=== PATIENT | male | born 1990 | race Caucasian/White ===

== ENCOUNTER 2016-12-08 11:25 | Emergency (ER) | payer MEDICAID ==
[~2016-12-08] VITALS: Ht 160 cm; Wt 36.3 kg
[~2016-12-08 11:25] MED LIST: ACET500C4 PO; ACHC10OT EACH EAR; AGM875T PO; BISA10SU58 RC; BROMPHED; CEFD250S3 PO; CEFD300C3 PO; CEFP250T3 PO; CLARTIN PO; DIOCTO; Keppra; LEVE500T PO; LORA10TA7 PO; MCN2C15 EXT; POLY119P5 PO; SCP1.5TD TD; VALP250S14; [UNRECOGNIZED DRUG - CODE] PO; [UNRECOGNIZED DRUG - OTHER]
--- NOTE | 2016-12-08 11:33 | ED Neurological Problem ---
General Stated Complaint: SEIZURE Source: patient Exam Limitations: no limitations History of Present Illness Time seen by provider: 11:32 Initial Comments To ER per EMS from group activity ([employer]) with reports of seizure activity. Patient is nonverbal and severely mentally retarded. Still lives at home at spends his days with [employer]. He does have a seizure history taking Keppra and Depakote. Reports are that he did not hit his head or injure himself from falling. Associated Symptoms: seizures Allergies and Home Medications Allergies Coded Allergies: diphenhydramine (Unverified Allergy, Mild, 11/16/08) midazolam (Unverified Allergy, Mild, 11/16/08) codeine (Verified Adverse Reaction, Unknown, agitation, 03/30/15) Uncoded Allergies: [id number] (TUSSI-PRES) (Allergy, Mild, 11/16/08) Home Medications Levetiracetam 500 Mg Tab, 500 MG PO BID, #60 (Reported) Scopolamine 1.5 Mg Patch, 1 EA TD Q72H, (Reported) Valproic Acid 50 Mg/Ml Solution, 100 MG PO BID, #600 (Reported) [Clartin] 10 , 10 MG PO DAILY, (Reported) Constitutional: see HPI Eyes: No Symptoms Reported Ears, Nose, Mouth, Throat: no symptoms reported Respiratory: no symptoms reported Cardiovascular: no symptoms reported Genitourinary: no symptoms reported Musculoskeletal: no symptoms reported Psychiatric/Neurological: See HPI, Tonic Clonic Seizures Endocrine: No Symptoms Reported Past Ceqpojl-Rqavkn-Domopq Hx Immunizations Up To Date Tetanus Booster (TDap): More than 5yrs PED Vaccines UTD: Yes Surgeries HX Surgeries: Yes (CLEFT LIP/PALATE RECONSTRUCTION) Surgeries: Eye Surgery, Testicular Respiratory Hx Respiratory Disorders: Yes Respiratory Disorders: Asthma Cardiovascular Hx Cardiac Disorders: No Neurological Hx Neurological Disorders: Yes (SEVERE MR--NON-VERBAL) Neurological Disorders: Cerebral Palsy, Developmental Disorder, Seizure Disorder Genitourinary Hx Genitourinary Disorders: No Gastrointestinal Hx Gastrointestinal Disorders: No Musculoskeletal Hx Musculoskeletal Disorders: Yes (CEREBRAL PALSY--MINIMALLY AMBULATORY WITH ASSIST) Endocrine Hx Endocrine Disorders: No HEENT HX ENT Disorders: Yes (CLEFT LIP/PALATE--S/P REPAIR) HEENT Disorders: Chronic Ear Infection Cancer Hx Cancer: No Psychosocial Hx Psychiatric Problems: No Integumentary HX Skin/Integumentary Disorder: No Blood Transfusions Hx Blood Disorders: No Physical Exam Vital Signs Vital Sign - Last 12Hours 12/08/16 11:38 Temp 98.4 Pulse 83 Resp 18 B/P (MAP) 111/76 Pulse Ox 97 O2 Delivery Room Air Capillary Refill : General Appearance: WD/WN, no apparent distress HEENT: PERRL/EOMI, normal ENT inspection Neck: non-tender, full range of motion Respiratory: normal breath sounds, no respiratory distress, no accessory muscle use Gastrointestinal: normal bowel sounds, non tender, soft Neurologic/Psychiatric: alert, normal mood/affect, oriented x 3 Crainal Nerves: normal hearing, normal speech, PERRL Motor/Sensory: no motor deficit, no sensory deficit Skin: normal color, warm/dry Progress/Results/Core Measures Results/Orders Lab Results Laboratory Tests Test 12/08/16 11:28 Range/Units White Blood Count 5.3 4.3-11.0 10^3/uL Red Blood Count 4.22 L 4.35-5.85 10^6/uL Hemoglobin 13.6 13.3-17.7 G/DL Hematocrit 40 40-54 % Mean Corpuscular Volume 96 80-99 FL Mean Corpuscular Hemoglobin 32 25-34 PG Mean Corpuscular Hemoglobin Concent 34 32-36 G/DL Red Cell Distribution Width 13.3 10.0-14.5 % Platelet Count 248 130-400 10^3/uL Mean Platelet Volume 10.0 7.4-10.4 FL Neutrophils (%) (Auto) 55 42-75 % Lymphocytes (%) (Auto) 23 12-44 % Monocytes (%) (Auto) 18 H 0-12 % Eosinophils (%) (Auto) 2 0-10 % Basophils (%) (Auto) 1 0-10 % Neutrophils # (Auto) 2.9 1.8-7.8 X 10^3 Lymphocytes # (Auto) 1.3 1.0-4.0 X 10^3 Monocytes # (Auto) 1.0 0.0-1.0 X 10^3 Eosinophils # (Auto) 0.1 0.0-0.3 10^3/uL Basophils # (Auto) 0.1 0.0-0.1 10^3/uL Neutrophils % (Manual) 61 % Lymphocytes % (Manual) 23 % Monocytes % (Manual) 14 % Eosinophils % (Manual) 2 % Blood Morphology Comment NORMAL Sodium Level 141 135-145 MMOL/L Potassium Level 3.9 3.6-5.0 MMOL/L Chloride Level 107 98-107 MMOL/L Carbon Dioxide Level 29 21-32 MMOL/L Anion Gap 5 5-14 MMOL/L Blood Urea Nitrogen 10 7-18 MG/DL Creatinine 0.69 0.60-1.30 MG/DL Estimat Glomerular Filtration Rate > 60 BUN/Creatinine Ratio 14 Glucose Level 79 70-105 MG/DL Calcium Level 9.5 8.5-10.1 MG/DL Total Bilirubin 0.4 0.1-1.0 MG/DL Aspartate Amino Transf (AST/SGOT) 21 5-34 U/L Alanine Aminotransferase (ALT/SGPT) 17 0-55 U/L Alkaline Phosphatase 140 H 40-136 U/L Total Protein 6.8 6.4-8.2 G/DL Albumin 3.9 3.2-4.5 G/DL Valproic Acid (Depakene) Level 110.6 *H 50.0-100.0 UG/ML My Orders Orders - TERRY DYSON APRN Cbc With Automated Diff (12/08/16 11:30) Comprehensive Metabolic Panel (12/08/16 11:30) Saline Lock/Iv-Start (12/08/16 11:30) Manual Differential (12/08/16 11:28) General/Regular (12/08/16 Lunch) Valproic Acid (12/08/16 12:08) Vital Signs/I&O Vital Sign - Last 12Hours 12/08/16 11:38 Temp 98.4 Pulse 83 Resp 18 B/P (MAP) 111/76 Pulse Ox 97 O2 Delivery Room Air Departure Impression Impression: Primary Impression: Seizure disorder Disposition: HOME, SELF-CARE Condition: Stable Departure-Patient Inst. Decision time for Depature: 12:15 Referrals: CARRIE MADRID MD (PCP/Family) Primary Care Physician Patient Instructions: Seizures, Adult (DC) Add. Discharge Instructions: 1. Return to ER for any concerns 2. Follow-up with his physician this week Copy Copies To 1: ANAY GIRON MD, PETER J APRN December 08, 2016 11:33
[2016-12-08 11:38] LABS: BASOPHILS # (AUTO) 0.1 10^3/uL (0.0-0.1); BASOPHILS % (AUTO) 1 % (0-10); EOSINOPHILS # (AUTO) 0.1 10^3/uL (0.0-0.3); EOSINOPHILS % (AUTO) 2 % (0-10); LYMPHOCYTES # (AUTO) 1.3 X 10^3 (1.0-4.0); LYMPHOCYTES % (AUTO) 23 % (12-44); MEAN CORPUSCULAR HEMOGLOBIN 32 PG (25-34); MEAN CORPUSCULAR HGB CONC 34 G/DL (32-36); MEAN CORPUSCULAR VOLUME 96 FL (80-99); MONOCYTES % (AUTO) 18 % (0-12); NEUTROPHILS # (AUTO) 2.9 X 10^3 (1.8-7.8); NEUTROPHILS % (AUTO) 55 % (42-75); PLATELET COUNT 248 10^3/uL (130-400); RED BLOOD COUNT 4.22 10^6/uL (4.35-5.85); RED CELL DISTRIBUTION WIDTH 13.3 % (10.0-14.5); WHITE BLOOD COUNT 5.3 10^3/uL (4.3-11.0)
[2016-12-08 12:01] LABS: ALANINE AMINOTRANSFERASE 17 U/L (0-55); ALBUMIN 3.9 G/DL (3.2-4.5); ANION GAP 5 MMOL/L (5-14); ASPARTATE AMINO TRANSFERASE 21 U/L (5-34); BILIRUBIN,TOTAL 0.4 MG/DL (0.1-1.0); BLOOD UREA NITROGEN 10 MG/DL (7-18); BUN/CREATININE RATIO 14; CALCIUM 9.5 MG/DL (8.5-10.1); CARBON DIOXIDE 29 MMOL/L (21-32); CHLORIDE 107 MMOL/L (98-107); CREATININE SERUM 0.69 MG/DL (0.60-1.30); GFR ESTIMATED > 60; GLUCOSE 79 MG/DL (70-105); POTASSIUM 3.9 MMOL/L (3.6-5.0); SODIUM 141 MMOL/L (135-145); TOTAL PROTEIN 6.8 G/DL (6.4-8.2)
[2016-12-08 12:11] LABS: EOSINOPHILS % (MANUAL) 2 %; LYMPHOCYTES % (MANUAL) 23 %; NEUTROPHILS % (MANUAL) 61 %
[2016-12-08 12:30] VITALS: BP 110/86
== END 2016-12-08 12:30 | disposition home or self-care (01) ==
LOC: EDUNIT# 11:25 → ER 11:26
DX: G40.909 Epilepsy, unspecified, not intractable, without status epilepticus (principal); G80.9 Cerebral palsy, unspecified; F72 Severe intellectual disabilities; Z79.899 Other long term (current) drug therapy
CPT/HCPCS: 36415; 80053; 80164; 85007; 85027; 99283

== ENCOUNTER 2017-04-04 13:35 | Emergency (ER) | payer MEDICARE, MEDICAID ==
[~2017-04-04] VITALS: Ht 134.6 cm; Wt 38.6 kg
--- OUTSIDE RECORDS SUMMARY | 2017-04-04 13:56 | XMS REPORT ---
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
--- OUTSIDE RECORDS SUMMARY | 2017-04-04 13:57 | XMS REPORT ---
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 mixed with equal parts of triamcinlone Twice a day 1 application to affected area 12h Oct, Active Triamcinolone Acetonide 0.1 % Externally to be mixed with equal part of statin Twice a day 1 application to affected area 12h Oct, Active RESULTS No Results PROCEDURES No Known procedures IMMUNIZATIONS No Known Immunizations
--- NOTE | 2017-04-04 13:58 | ED General ---
General Chief Complaint: General Problems/Pain Stated Complaint: SEIZURES/PAINFUL CRYING Source of Information: Patient Exam Limitations: No Limitations History of Present Illness Time Seen by Provider: 13:56 Initial Comments To ER E by his caregiver mother and father with reports of increased seizure activity and not acting like himself. Patient is nonverbal, cerebral palsy. He 's been crying more than usual lately. No vomiting, normal large BM earlier today. Timing/Duration: 2-3 Days Severity: Moderate Allergies and Home Medications Allergies Coded Allergies: diphenhydramine (Unverified Allergy, Mild, 11/16/08) midazolam (Unverified Allergy, Mild, 11/16/08) codeine (Verified Adverse Reaction, Unknown, agitation, 03/30/15) Uncoded Allergies: [id number] (TUSSI-PRES) (Allergy, Mild, 11/16/08) Home Medications Levetiracetam 500 Mg Tab, 500 MG PO BID, #60 (Reported) Scopolamine 1.5 Mg Patch, 1 EA TD Q72H, (Reported) Valproic Acid 50 Mg/Ml Solution, 100 MG PO BID, #600 (Reported) [Clartin] 10 , 10 MG PO DAILY, (Reported) Constitutional: see HPI, No fever EENTM: see HPI Respiratory: no symptoms reported Cardiovascular: no symptoms reported Genitourinary: no symptoms reported Musculoskeletal: no symptoms reported Skin: no symptoms reported Psychiatric/Neurological: No Symptoms Reported Hematologic/Lymphatic: No Symptoms Reported Immunological/Allergic: no symptoms reported Past Lyxqngj-Nepllg-Cclrxj Hx Patient Social History Recent Foreign Travel: No Contact w/Someone Who Travel: No Immunizations Up To Date Tetanus Booster (TDap): More than 5yrs PED Vaccines UTD: Yes Surgeries History of Surgeries: Yes (CLEFT LIP/PALATE RECONSTRUCTION) Surgeries: Eye Surgery, Testicular Respiratory History of Respiratory Disorde: Yes Respiratory Disorders: Asthma Cardiovascular History of Cardiac Disorders: No Neurological History of Neurological Disord: Yes (SEVERE MR--NON-VERBAL) Neurological Disorders: Cerebral Palsy, Developmental Disorder, Seizure Disorder Gastrointestinal History of Gastrointestinal Di: No Musculoskeletal History of Musculoskeletal Dis: Yes (CEREBRAL PALSY--MINIMALLY AMBULATORY WITH ASSIST) Endocrine History of Endocrine Disorders: No HEENT HEENT Disorders: Chronic Ear Infection Cancer History of Cancer: No Psychosocial History of Psychiatric Problem: No Integumentary History of Skin or Integumenta: No Blood Transfusions History of Blood Disorders: No Physical Exam Vital Signs Vital Sign - Last 12Hours 04/04/17 13:40 Temp 97.2 Pulse 70 Resp 16 B/P (MAP) 106/81 Capillary Refill : General Appearance: No Apparent Distress, WD/WN Eyes: Bilateral Eye Normal Inspection, Bilateral Eye PERRL, Bilateral Eye EOMI HEENT: PERRL/EOMI, TMs Normal Neck: Full Range of Motion, Normal Inspection Respiratory: No Accessory Muscle Use, No Respiratory Distress Cardiovascular: Regular Rate, Rhythm, Normal Peripheral Pulses Gastrointestinal: Normal Bowel Sounds, Non Tender, Soft Extremity: Normal Capillary Refill, Normal Inspection Neurologic/Psychiatric: Alert, Oriented x3, No Motor/Sensory Deficits Skin: Normal Color, Warm/Dry Progress/Results/Core Measures Results/Orders Lab Results Laboratory Tests Test 04/04/17 13:50 Range/Units White Blood Count 6.8 4.3-11.0 10^3/uL Red Blood Count 4.46 4.35-5.85 10^6/uL Hemoglobin 13.4 13.3-17.7 G/DL Hematocrit 41 40-54 % Mean Corpuscular Volume 91 80-99 FL Mean Corpuscular Hemoglobin 30 25-34 PG Mean Corpuscular Hemoglobin Concent 33 32-36 G/DL Red Cell Distribution Width 12.8 10.0-14.5 % Platelet Count 359 130-400 10^3/uL Mean Platelet Volume 10.1 7.4-10.4 FL Neutrophils (%) (Auto) 54 42-75 % Lymphocytes (%) (Auto) 28 12-44 % Monocytes (%) (Auto) 13 H 0-12 % Eosinophils (%) (Auto) 4 0-10 % Basophils (%) (Auto) 2 0-10 % Neutrophils # (Auto) 3.6 1.8-7.8 X 10^3 Lymphocytes # (Auto) 1.9 1.0-4.0 X 10^3 Monocytes # (Auto) 0.9 0.0-1.0 X 10^3 Eosinophils # (Auto) 0.3 0.0-0.3 10^3/uL Basophils # (Auto) 0.1 0.0-0.1 10^3/uL Sodium Level 140 135-145 MMOL/L Potassium Level 4.4 3.6-5.0 MMOL/L Chloride Level 107 98-107 MMOL/L Carbon Dioxide Level 22 21-32 MMOL/L Anion Gap 11 5-14 MMOL/L Blood Urea Nitrogen 9 7-18 MG/DL Creatinine 0.63 0.60-1.30 MG/DL Estimat Glomerular Filtration Rate > 60 BUN/Creatinine Ratio 14 Glucose Level 87 70-105 MG/DL Calcium Level 9.1 8.5-10.1 MG/DL Total Bilirubin 0.2 0.1-1.0 MG/DL Aspartate Amino Transf (AST/SGOT) 22 5-34 U/L Alanine Aminotransferase (ALT/SGPT) 14 0-55 U/L Alkaline Phosphatase 143 H 40-136 U/L C-Reactive Protein High Sensitivity 0.25 0.00-0.50 MG/DL Total Protein 6.6 6.4-8.2 GM/DL Albumin 3.8 3.2-4.5 GM/DL My Orders Orders - TERRY DYSON APRN Cbc With Automated Diff (04/04/17 13:53) Comprehensive Metabolic Panel (04/04/17 13:53) Hs C Reactive Protein (04/04/17 13:53) Saline Lock/Iv-Start (04/04/17 13:53) Chest 1 View, Ap/Pa Only (04/04/17 13:53) Abdomen/Kub 1view (04/04/17 13:53) Ns Iv 500 Ml (Sodium Chloride 0.9%) (04/04/17 14:00) Vital Signs/I&O Vital Sign - Last 12Hours 04/04/17 13:40 Temp 97.2 Pulse 70 Resp 16 B/P (MAP) 106/81 Departure Impression Impression: Primary Impression: Constipation Disposition: 01 HOME, SELF-CARE Condition: Stable Departure-Patient Inst. Decision time for Depature: 14:38 Referrals: ANAY GIRON MD (PCP/Family) Primary Care Physician Patient Instructions: Constipation in Adults Add. Discharge Instructions: 1. Return to ER for any concerns 2. Follow up with your doctor later this week 3. take the laxative as directed All discharge instructions reviewed with patient and/or family. Voiced understanding. Scripts Polyethylene Glycol 3350 (Miralax) 17 Gm Powd.pack 17 GM PO BID, #10 EACH Prov: TERRY DYSON FIELD HAND 04/04/17 TERRY DYSON APRN Apr 04, 2017 13:58
--- OUTSIDE RECORDS SUMMARY | 2017-04-04 13:58 | XMS REPORT ---
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 620360029 Problem Seizure disorder G40.909 Active 885291600 Problem Cerebral palsy G80.9 Active 523680608 ALLERGIES Substance Reaction Event Type Date Status Hydrocodone-Guaifenesin anger and agitated Drug Allergy Jul, Active Midazolam HCl anger and agitated Drug Allergy Jul, Active Hydrocodone-Acetaminophen anger and agitated Drug Allergy Jul, Active Benadryl agiitated Drug Allergy Jul, Active SOCIAL HISTORY No smoking Hx information available PLAN OF CARE Activity Details Follow Up prn Reason: VITAL SIGNS Height 63 in 2016-08-01 Temperature 97.7 degrees Fahrenheit 2016-08-01 Heart Rate 96 bpm 2016-08-01 Respiratory Rate 22 2016-08-01 Blood pressure systolic 110 mmHg 2016-08-01 Blood pressure diastolic 70 mmHg 2016-08-01 MEDICATIONS Medication Instructions Dosage Frequency Start Date End Date Duration Status Mucinex Sinus-Max 10-650-400 MG/20ML Orally every 4 hrs 10 ml as needed 4h Active Mupirocin 2 % Externally Three times a day 1 application to affected area 8h Active Augmentin 875-125 MG Orally every 12 hrs 1 tablet 12h Jul,Jul 10 day(s) Active Valproic Acid 250 MG/5ML Orally Twice a day 12.5 ml 12h Active Keppra 500 MG Orally every 12 hrs 1 tablet 12h Active Scopace 1.5 mg apply 2 patches behind ear every 3 days Active Triamcinolone Acetonide 0.1 % Externally to be mixed with equal part of statin Twice a day 1 application to affected area 12h Oct, Active Nystatin 505310 UNIT/GM Externally. mixed with equal parts of triamcinlone Twice a day 1 application to affected area 12h Oct, Active Loratadine 10 mg Orally. needs appointment Once a day 1 tablet 24h Active RESULTS No Results PROCEDURES Procedure Date Ordered Related Diagnosis Body Site [facility] VISIT ESTABLISHED PATIENT Aug 01, 2016 Office Visit, Est Pt., Level 3 Aug 01, 2016 IMMUNIZATIONS No Known Immunizations
--- OUTSIDE RECORDS SUMMARY | 2017-04-04 13:58 | XMS REPORT ---
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
[2017-04-04 14:00] LABS: BASOPHILS # (AUTO) 0.1 10^3/uL (0.0-0.1); BASOPHILS % (AUTO) 2 % (0-10); EOSINOPHILS # (AUTO) 0.3 10^3/uL (0.0-0.3); EOSINOPHILS % (AUTO) 4 % (0-10); LYMPHOCYTES # (AUTO) 1.9 X 10^3 (1.0-4.0); LYMPHOCYTES % (AUTO) 28 % (12-44); MEAN CORPUSCULAR HEMOGLOBIN 30 PG (25-34); MEAN CORPUSCULAR HGB CONC 33 G/DL (32-36); MEAN CORPUSCULAR VOLUME 91 FL (80-99); MEAN PLATELET VOLUME 10.1 FL (7.4-10.4); MONOCYTES # (AUTO) 0.9 X 10^3 (0.0-1.0); MONOCYTES % (AUTO) 13 % (0-12); NEUTROPHILS # (AUTO) 3.6 X 10^3 (1.8-7.8); NEUTROPHILS % (AUTO) 54 % (42-75); PLATELET COUNT 359 10^3/uL (130-400); RED BLOOD COUNT 4.46 10^6/uL (4.35-5.85); RED CELL DISTRIBUTION WIDTH 12.8 % (10.0-14.5); WHITE BLOOD COUNT 6.8 10^3/uL (4.3-11.0)
--- NOTE | 2017-04-04 14:28 | Diagnostic Imaging Report ---
AP supine view of the chest. INDICATION: Seizures. FINDINGS: The lungs are clear. The heart size is normal. No effusion or pneumothorax. The mediastinum and krzysztof appear unremarkable. IMPRESSION: Unremarkable exam. Dictated by: Dictated on workstation # [id number]
[2017-04-04 14:30] LABS: ALANINE AMINOTRANSFERASE 14 U/L (0-55); ALBUMIN 3.8 GM/DL (3.2-4.5); ANION GAP 11 MMOL/L (5-14); ASPARTATE AMINO TRANSFERASE 22 U/L (5-34); BILIRUBIN,TOTAL 0.2 MG/DL (0.1-1.0); BLOOD UREA NITROGEN 9 MG/DL (7-18); BUN/CREATININE RATIO 14; CALCIUM 9.1 MG/DL (8.5-10.1); CARBON DIOXIDE 22 MMOL/L (21-32); CHLORIDE 107 MMOL/L (98-107); CREATININE SERUM 0.63 MG/DL (0.60-1.30); GFR ESTIMATED > 60; GLUCOSE 87 MG/DL (70-105); POTASSIUM 4.4 MMOL/L (3.6-5.0); SODIUM 140 MMOL/L (135-145); TOTAL PROTEIN 6.6 GM/DL (6.4-8.2); hs C REACTIVE PROTEIN 0.25 MG/DL (0.00-0.50)
--- NOTE | 2017-04-04 14:34 | Diagnostic Imaging Report ---
Supine view of the abdomen. INDICATION: Seizures. Constipation. FINDINGS: There is moderate amount of fecal material in the colon and rectum. There is gaseous distention of the stomach. There is mild gaseous distention of small bowel loops and the colon also seen. No significant bowel dilatation to suggest obstruction, however. IMPRESSION: Moderate amounts of fecal material in the colon and rectum may relate to constipation. There is also nonspecific gaseous distention of the stomach and bowel loops without dilatation or evidence of obstruction. Dictated by: Dictated on workstation # [id number]
[2017-04-04] MEDS ORDERED: POLY17PO6 PO (14:39)
[2017-04-04] MEDS: NS IV 500 ML 500 ML IV SCH ×2 (14:40→14:44)
[2017-04-04 15:05] VITALS: BP 108/80
== END 2017-04-04 15:05 | disposition home or self-care (01) ==
LOC: EDUNIT# 13:35 → ER 13:39
DX: K59.00 Constipation, unspecified (principal); J45.909 Unspecified asthma, uncomplicated; G43.909 Migraine, unspecified, not intractable, without status migrainosus; Z86.69 Personal history of other diseases of the nervous system and sense organs
CPT/HCPCS: 36415; 71010; 74000; 80053; 85025; 86141

== ENCOUNTER 2018-10-07 18:42 | Emergency (ER) | payer MEDICARE, MEDICAID ==
[~2018-10-07] VITALS: Ht 152.4 cm; Wt 38.6 kg
[~2018-10-07 18:42] MED LIST changes: +POLY17PO6 PO
[2018-10-07] MEDS ORDERED: LACTATED RINGERS 1,000 ML IV ONE (19:12)
[2018-10-07] MEDS ORDERED: ONDANSETRON 4 MG/2 ML (SDV) Z0FRAN IVP ONE (19:15)
--- NOTE | 2018-10-07 19:28 | ED GI ---
General Stated Complaint: VOMITING/POSS DEHYDRATED Source of Information: Caregiver, Family History of Present Illness Date Seen by Provider: Oct 07, 2018 Time Seen by Provider: 19:10 Initial Comments PT ARRIVES VIA POV FROM HOME WITH RRTS AND BOTH PARENTS PT WITH CP AND PROFOUND MR PT LIVES WITH RRTS AND HER FAMILY DURING THE WEEK, AND ALTERNATES WEEKENDS WITH MOM AND DAD HAS BEEN AT MOM'S HOUSE THIS WEEKEND. PT HAS BEEN VOMITING ALL DAY TODAY--AT LEAST 5 TIMES. MOM STATES EVERY TIME HE TAKES A DRINK HE VOMITS IT BACK UP HAD A WET DIAPER THIS AM ON WAKING AND URINE WAS VERY DARK, HAS NOT URINATED AT ALL TODAY NO DIARRHEA, NO BM TODAY AT ALL. HAD 2 NORMAL BM'S YESTERDAY--PT NORMALLY HAS A FEW LARGE BM'S EVERY DAY. 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 PCP: DR. Alvina GIRON AT [facility] Allergies and Home Medications Allergies Coded Allergies: diphenhydramine (Unverified Allergy, Mild, 10/07/18) midazolam (Unverified Allergy, Mild, 10/07/18) glycopyrrolate (Unverified Allergy, Unknown, 10/07/18) hydrocodone (Unverified Allergy, Unknown, 10/07/18) codeine (Verified Adverse Reaction, Unknown, agitation, 10/07/18) Uncoded Allergies: [id number] (TUSSI-PRES) (Allergy, Mild, 11/16/08) Home Medications Levetiracetam 500 Mg Tab, 500 MG PO BID, (Reported) Polyethylene Glycol 3350 17 Gm Powd.pack, 17 GM PO BID Prescribed by: TERRY DYSON on 04/04/17 4239 Scopolamine 1.5 Mg Patch, 1 EA TD Q72H, (Reported) Valproic Acid 50 Mg/Ml Solution, 100 MG PO BID, (Reported) [Clartin] 10 , 10 MG PO DAILY, (Reported) Patient Home Medication List Home Medication List Reviewed: Yes Review of Systems Review of Systems Constitutional: No fever; other (LESS ACTIVE THAN NORMAL, SLEEPING MORE TODAY) EENTM: Nose Congestion Respiratory: Cough; Denies Shortness of Air, Denies Wheezing Cardiovascular: No Symptoms Reported Gastrointestinal: Constipated; Denies Diarrhea; Poor Appetite, Poor Fluid Intake, Vomiting Genitourinary: See HPI Psychiatric/Neurological: Pre-Existing Deficit (CP, PROFOUND MR--NON-VERBAL) Past Nnuvjly-Vqjirf-Ofnwbk Hx Patient Social History Recent Foreign Travel: No Contact w/Someone Who Travel: No Immunizations Up To Date Tetanus Booster (TDap): More than 5yrs PED Vaccines UTD: Yes Seasonal Allergies Seasonal Allergies: Yes Past Medical History Surgeries: Yes (CLEFT LIP/PALATE RECONSTRUCTION) Eye Surgery, Testicular Respiratory: Yes Asthma Cardiac: No Neurological: Yes (SEVERE MR--NON-VERBAL) Cerebral Palsy, Developmental Disorder, Seizure Disorder Genitourinary: Yes (INCONTINENCE--NOT BOWEL OR BLADDER TRAINED DUE TO SEVERE MR ) Gastrointestinal: No Musculoskeletal: Yes (CEREBRAL PALSY--MINIMALLY AMBULATORY WITH ASSIST) Endocrine: No HEENT: Yes (CLEFT LIP/PALATE--STILL WITH OPENING IN HARD PALATE) Chronic Ear Infection Cancer: No Psychosocial: No Integumentary: No Blood Disorders: No Physical Exam Vital Signs Vital Signs - First Documented 10/07/18 19:07 Temp 96.5 Pulse 105 Resp 16 B/P (MAP) 112/78 (89) Pulse Ox 93 Capillary Refill : Height/Weight/BMI Height: 4'5.00" Weight: 85lbs. oz. 38.550182ln; 14.17 BMI Method:Stated General Appearance: no apparent distress, thin, other (PT AMBULATES INTO ER WITH ASSIST--GAIT UNSTEADY) HEENT: other (ABNORMAL FACIAL FEATURES. CLEFT PALATE) Respiratory: normal breath sounds, no respiratory distress, no accessory muscle use Cardiovascular: regular rate, rhythm, no murmur Gastrointestinal: non tender, soft, no organomegaly, abnormal bowel sounds ( HYPERACTIVE, BUT NOT TYMPANIC); No distended, No hernia; other (ABDOMEN FLAT) Extremities: no pedal edema, normal capillary refill Neurologic/Psychiatric: alert, normal mood/affect (NORMAL FOR PT), other (PT IS AT BASELINE--PROFOUND MR, NON-VERBAL AND DOES NOT FOLLOW COMMANDS) Skin: normal color, warm/dry; No rash Progress/Results/Core Measures Results/Orders Lab Results Laboratory Tests Test 10/07/18 19:25 10/07/18 19:29 Range/Units Group A Streptococcus Screen NEGATIVE NEGATIVE White Blood Count 4.1 L 4.3-11.0 10^3/uL Red Blood Count 4.85 4.35-5.85 10^6/uL Hemoglobin 15.2 13.3-17.7 G/DL Hematocrit 44 40-54 % Mean Corpuscular Volume 91 80-99 FL Mean Corpuscular Hemoglobin 31 25-34 PG Mean Corpuscular Hemoglobin Concent 34 32-36 G/DL Red Cell Distribution Width 13.6 10.0-14.5 % Platelet Count 229 130-400 10^3/uL Mean Platelet Volume 10.2 7.4-10.4 FL Neutrophils (%) (Auto) 48 42-75 % Lymphocytes (%) (Auto) 29 12-44 % Monocytes (%) (Auto) 22 H 0-12 % Eosinophils (%) (Auto) 1 0-10 % Basophils (%) (Auto) 1 0-10 % Neutrophils # (Auto) 2.0 1.8-7.8 X 10^3 Lymphocytes # (Auto) 1.2 1.0-4.0 X 10^3 Monocytes # (Auto) 0.9 0.0-1.0 X 10^3 Eosinophils # (Auto) 0.0 0.0-0.3 10^3/uL Basophils # (Auto) 0.0 0.0-0.1 10^3/uL Neutrophils % (Manual) 44 % Lymphocytes % (Manual) 23 % Monocytes % (Manual) 21 % Basophils % (Manual) 1 % Reactive Lymphocytes 11 % Blood Morphology Comment NORMAL Sodium Level 141 135-145 MMOL/L Potassium Level 3.5 L 3.6-5.0 MMOL/L Chloride Level 107 98-107 MMOL/L Carbon Dioxide Level 23 21-32 MMOL/L Anion Gap 11 5-14 MMOL/L Blood Urea Nitrogen 16 7-18 MG/DL Creatinine 0.65 0.60-1.30 MG/DL Estimat Glomerular Filtration Rate > 60 BUN/Creatinine Ratio 25 Glucose Level 111 H 70-105 MG/DL Calcium Level 9.2 8.5-10.1 MG/DL Corrected Calcium 9.2 8.5-10.1 MG/DL Magnesium Level 2.1 1.8-2.4 MG/DL Total Bilirubin 0.3 0.1-1.0 MG/DL Aspartate Amino Transf (AST/SGOT) 25 5-34 U/L Alanine Aminotransferase (ALT/SGPT) 19 0-55 U/L Alkaline Phosphatase 126 40-136 U/L Total Protein 6.9 6.4-8.2 GM/DL Albumin 4.0 3.2-4.5 GM/DL Amylase Level 50 25-125 U/L Lipase 8 8-78 U/L Valproic Acid (Depakene) Level 54.4 50.0-100.0 UG/ML Monoscreen NEGATIVE NEGATIVE Micro Results Microbiology 10/07/18 Influenza Types A,B Antigen (PERRI) - Final, Complete My Orders Orders - LAKESHIA SOLOMON DO Ondansetron Injection (Zofran Injectio (10/07/18 19:15) Saline Lock/Iv-Start (10/07/18 19:12) Lactated Ringers (Lr 1000 Ml Iv Solution (10/07/18 19:12) Amylase (10/07/18 19:12) Cbc With Automated Diff (10/07/18 19:12) Comprehensive Metabolic Panel (10/07/18 19:12) Lipase (10/07/18 19:12) Magnesium (10/07/18 19:12) Ua Culture If Indicated (10/07/18 19:12) Monotest (10/07/18 19:20) Rapid Strep A Screen (10/07/18 19:20) Valproic Acid (10/07/18 19:20) Influenza A And B Antigens (10/07/18 19:20) Chest 1 View, Ap/Pa Only (10/07/18 19:20) Manual Differential (10/07/18 19:29) Lactated Ringers (Lr 1000 Ml Iv Solution (10/07/18 21:00) Medications Given in ED Current Medications Medications Dose Ordered Sig/Sonu Route Start Time Stop Time Status Last Admin Dose Admin Lactated Ringer's 1,000 ml @ 0 mls/hr Q0M ONCE IV 10/07/18 19:12 10/07/18 19:14 DC 10/07/18 19:41 800 MLS/HR Ondansetron HCl 8 mg ONCE ONCE IVP 10/07/18 19:15 10/07/18 19:16 DC 10/07/18 19:41 8 MG Vital Signs/I&O 10/07/18 19:07 Temp 96.5 Pulse 105 Resp 16 B/P (MAP) 112/78 (89) Pulse Ox 93 Progress Progress Note : Progress Note NO VOMITING OR COUGH NOTED DURING ER STAY PT TOLERATING WATER PRIOR TO DISMISSAL PT HAD COMPLETELY SATURATED DIAPER PRIOR TO PLACING U-BAG GIVEN 2 LITERS OF FLUIDS NO DETERIORATION IN PT'S CONDITION DURING ER STAY--PT MORE ACTIVE AT DISMISSAL FAMILY/RRTS REPORT PRIOR TO DISMISSAL THAT PT OFTEN HAS CONSTIPATION AND IS NOT UNUSUAL FOR HIM TO GO A COUPLE OF DAYS WITHOUT BM. ALTHOUGH NO URINE AFTER FLUID BOLUS OF 2 LITERS, PARENTS AND RRTS COMFORTABLE TAKING PT HOME--STATES HE HAS DONE THIS BEFORE AND FEEL CONFIDENT THAT HE WILL URINATE SOON HE LEAVES HERE. Diagnostic Imaging Comments CXR--NO ACUTE PROCESS, PER RADIOLOGIST REVIEW Reviewed: Reviewed by Me Departure Impression Primary Impression: Nausea and vomiting Additional Impressions: POSSIBLE GASTROENTERITIS Mild dehydration Chronic constipation Disposition: 01 HOME, SELF-CARE Condition: Improved Departure-Patient Inst. Referrals: ANAY GIRON MD (PCP/Family) Primary Care Physician Patient Instructions: Constipation, Adult (DC), Dehydration, Adult (DC), Nausea and Vomiting, Adult (DC), Viral Gastroenteritis Add. Discharge Instructions: HOME, REST CONTINUE YOUR CURRENT MEDICATIONS PRESCRIBED USE ZOFRAN 4 MG EVERY 4 HOURS NEEDED FOR NAUSEA AND VOMITING CLEAR LIQUIDS UNTIL PT HAS A BM-MAY USE MIRALAX IF NEEDED FOR BM--WATER , BROTH , JELLO ,GATORADE FOLLOW UP WITH YOUR DR TOMORROW IF NO BETTER LAKESHIA SOLOMON DO Oct 07, 2018 19:28
[2018-10-07 19:40] LABS: BASOPHILS % (AUTO) 1 % (0-10); EOSINOPHILS % (AUTO) 1 % (0-10); HEMATOCRIT 44 % (40-54); HEMOGLOBIN 15.2 G/DL (13.3-17.7); LYMPHOCYTES # (AUTO) 1.2 X 10^3 (1.0-4.0); LYMPHOCYTES % (AUTO) 29 % (12-44); MEAN CORPUSCULAR HEMOGLOBIN 31 PG (25-34); MEAN CORPUSCULAR HGB CONC 34 G/DL (32-36); MEAN CORPUSCULAR VOLUME 91 FL (80-99); MEAN PLATELET VOLUME 10.2 FL (7.4-10.4); MONOCYTES # (AUTO) 0.9 X 10^3 (0.0-1.0); MONOCYTES % (AUTO) 22 % (0-12); NEUTROPHILS % (AUTO) 48 % (42-75); PLATELET COUNT 229 10^3/uL (130-400); RED CELL DISTRIBUTION WIDTH 13.6 % (10.0-14.5); WHITE BLOOD COUNT 4.1 10^3/uL (4.3-11.0)
[2018-10-07 20:04] LABS: BASOPHILS % (MANUAL) 1 %; LYMPHOCYTES % (MANUAL) 23 %; MONOCYTES % (MANUAL) 21 %; NEUTROPHILS % (MANUAL) 44 %; RBC MORPH NORMAL; REACTIVE LYMPHOCYTES 11 %
[2018-10-07 20:11] LABS: ALANINE AMINOTRANSFERASE 19 U/L (0-55); ALKALINE PHOSPHATASE 126 U/L (40-136); AMYLASE 50 U/L (25-125); BILIRUBIN,TOTAL 0.3 MG/DL (0.1-1.0); BUN/CREATININE RATIO 25; CALCIUM 9.2 MG/DL (8.5-10.1); CARBON DIOXIDE 23 MMOL/L (21-32); CHLORIDE 107 MMOL/L (98-107); CREATININE SERUM 0.65 MG/DL (0.60-1.30); GFR ESTIMATED > 60; GLUCOSE 111 MG/DL (70-105); LIPASE 8 U/L (8-78); MAGNESIUM 2.1 MG/DL (1.8-2.4); POTASSIUM 3.5 MMOL/L (3.6-5.0); SODIUM 141 MMOL/L (135-145); TOTAL PROTEIN 6.9 GM/DL (6.4-8.2)
[2018-10-07 20:21] LABS: VALPROIC ACID 54.4 UG/ML (50.0-100.0)
--- NOTE | 2018-10-07 20:31 | Diagnostic Imaging Report ---
INDICATION: Nausea and vomiting. COMPARISON: 04/04/2017. EXAMINATION: Portable chest. FINDINGS: The lungs are well-aerated. There are no infiltrates. No air trapping. Heart is not enlarged. No pulmonary edema. No pneumothorax or pleural effusion. No bony abnormalities. IMPRESSION: Normal portable chest. Dictated by: Dictated on workstation # [id number]
[2018-10-07] MEDS ORDERED: LACTATED RINGERS 1,000 ML IV SCH (21:00)
[2018-10-07 22:16] VITALS: BP 110/62
== END 2018-10-07 22:16 | disposition home or self-care (01) ==
LOC: EDUNIT# 18:42 → ER 18:43
DX: R11.2 Nausea with vomiting, unspecified (principal); K59.00 Constipation, unspecified; E86.0 Dehydration; J45.909 Unspecified asthma, uncomplicated; G40.909 Epilepsy, unspecified, not intractable, without status epilepticus; G80.9 Cerebral palsy, unspecified; Z88.8 Allergy status to other drugs, medicaments and biological substances; Z88.5 Allergy status to narcotic agent; Z98.890 Other specified postprocedural states
CPT/HCPCS: 36415; 71045; 80053; 80164; 82150; 83690; 83735; 85007; 85027; 86308; 87430; 87804; 96361; 96374

== ENCOUNTER 2020-10-04 10:45 | Emergency (ER) | payer MEDICARE, MEDICAID ==
[~2020-10-04] VITALS: Ht 140 cm; Wt 38.5 kg
[2020-10-04 12:05] LABS: BILIRUBIN,URINE NEGATIVE (NEGATIVE); CLARITY,URINE CLEAR; COLOR,URINE YELLOW; GLUCOSE, URINE (UA) NEGATIVE (NEGATIVE); KETONES,URINE NEGATIVE (NEGATIVE); LEUKOCYTE ESTERASE ,URINE NEGATIVE (NEGATIVE); NITRITE,URINE NEGATIVE (NEGATIVE); PROTEIN,URINE NEGATIVE (NEGATIVE)
[2020-10-04 12:15] LABS: BACTERIA,URINE TRACE /HPF
--- NOTE | 2020-10-04 13:12 | ED General ---
General Chief Complaint: Fever-Adult/Adol Stated Complaint: FEVER Nursing Triage Note: PT PRESENTS TO ED ACCOMPANIED BY SONA WITH COMPLAINTS OF FEVER STARTING THIS AM. PT SONA REPORTS PT HAS HAD DECREASED APPETITE THIS AM. SHE GAVE PT 1000 MG TYLENOL AT 0845 THIS AM. REPORTS HE APPEARED FINE AND ACTED NORMALLY YESTERDAY. Nursing Sepsis Screen: Possible Sepsis Risk Source of Information: Caregiver Exam Limitations: Physical Impairments History of Present Illness Date Seen by Provider: Oct 04, 2020 Time Seen by Provider: 11:20 Allergies and Home Medications Allergies Coded Allergies: diphenhydramine (Unverified Allergy, Mild, 10/07/18) midazolam (Unverified Allergy, Mild, 10/07/18) glycopyrrolate (Unverified Allergy, Unknown, 10/07/18) hydrocodone (Unverified Allergy, Unknown, 10/07/18) codeine (Verified Adverse Reaction, Unknown, agitation, 10/07/18) Uncoded Allergies: [id number] (TUSSI-PRES) (Allergy, Mild, 11/16/08) Home Medications Levetiracetam 500 Mg Tab, 500 MG PO BID, (Reported) Polyethylene Glycol 3350 17 Gm Powd.pack, 17 GM PO BID Prescribed by: TERRY DYSON on 04/04/17 1439 Scopolamine 1.5 Mg Patch, 1 EA TD Q72H, (Reported) Valproic Acid 50 Mg/Ml Solution, 100 MG PO BID, (Reported) [Clartin] 10 , 10 MG PO DAILY, (Reported) Past Nhelqhf-Spvscl-Ssorpd Hx Patient Social History Alcohol Use: Denies Use Smoking Status: Never a Smoker Recent Infectious Disease Expo: No Recent Hopitalizations: No Immunizations Up To Date Tetanus Booster (TDap): More than 5yrs PED Vaccines UTD: Yes Seasonal Allergies Seasonal Allergies: Yes Past Medical History Surgeries: Yes (CLEFT LIP/PALATE RECONSTRUCTION) Eye Surgery, Testicular Respiratory: Yes Asthma Cardiac: No Neurological: Yes (SEVERE MR--NON-VERBAL) Cerebral Palsy, Developmental Disorder, Seizure Disorder Genitourinary: Yes (INCONTINENCE--NOT BOWEL OR BLADDER TRAINED DUE TO SEVERE MR) Gastrointestinal: No Musculoskeletal: Yes (CEREBRAL PALSY--MINIMALLY AMBULATORY WITH ASSIST) Endocrine: No HEENT: Yes (CLEFT LIP/PALATE--STILL WITH OPENING IN HARD PALATE) Chronic Ear Infection Cancer: No Psychosocial: No Integumentary: No Blood Disorders: No Physical Exam Vital Signs Vital Signs - First Documented 10/04/20 10:59 Temp 37.3 Pulse 149 Resp 18 B/P (MAP) 130/109 (116) Pulse Ox 94 Capillary Refill : Less Than 3 Seconds Height, Weight, BMI Height: 5'0" Weight: 85lbs. oz. 38.595106ch; 19.00 BMI Method:Stated Progress/Results/Core Measures Suspected Sepsis Recent Fever Within 48 Hours: Yes Infection Criteria Present: Suspected New Infection New/Unexplained Altered Menta: No Sepsis Screen: Possible Sepsis Risk SIRS Temperature: Pulse: 149 Respiratory Rate: 18 Blood Pressure 130 /109 Mean: 116 Results/Orders Lab Results Laboratory Tests Test 10/04/20 12:00 Range/Units Urine Color YELLOW Urine Clarity CLEAR Urine pH 8.0 5-9 Urine Specific [place] 1.020 1.016-1.022 Urine Protein NEGATIVE NEGATIVE Urine Glucose (UA) NEGATIVE NEGATIVE Urine Ketones NEGATIVE NEGATIVE Urine Nitrite NEGATIVE NEGATIVE Urine Bilirubin NEGATIVE NEGATIVE Urine Urobilinogen 0.2 < = 1.0 MG/DL Urine Leukocyte Esterase NEGATIVE NEGATIVE Urine RBC (Auto) NEGATIVE NEGATIVE Urine RBC NONE /HPF Urine WBC 10-25 H /HPF Urine Squamous Epithelial Cells 2-5 /HPF Urine Crystals NONE /LPF Urine Bacteria TRACE /HPF Urine Casts NONE /LPF Urine Mucus NEGATIVE /LPF Urine Culture Indicated YES Micro Results Microbiology 10/04/20 Influenza Types A,B Antigen (PERRI) - Final, Complete My Orders Orders - KADY SWANN MD Influenza A And B Antigens (10/04/20 11:35) Ua Culture If Indicated (10/04/20 11:35) Urine Culture (10/04/20 12:00) Vital Signs/I&O 10/04/20 10:59 Temp 37.3 Pulse 149 Resp 18 B/P (MAP) 130/109 (116) Pulse Ox 94 Capillary Refill : Less Than 3 Seconds Blood Pressure Mean: 116 Departure Impression Primary Impression: Viral syndrome Disposition: 01 HOME, SELF-CARE Condition: Stable Departure-Patient Inst. Decision time for Depature: 13:10 Referrals: ANAY GIRON MD (PCP/Family) Primary Care Physician Patient Instructions: Viral Syndrome (DC) Add. Discharge Instructions: Continue his home daily medications as previously prescribed. Alternate Tylenol and ibuprofen every 6 hours as needed for any temperature over 100.4. Return to the emergency room for reevaluation if he develops a cough, vomiting, rash or any other emergent concerning symptoms. KADY SWANN MD Oct 04, 2020 13:12
[2020-10-04 13:38] VITALS: BP 127/94
== END 2020-10-04 13:38 | disposition home or self-care (01) ==
LOC: EDUNIT# 10:45 → ER 10:47
DX: B34.9 Viral infection, unspecified (principal); G40.909 Epilepsy, unspecified, not intractable, without status epilepticus; Z86.69 Personal history of other diseases of the nervous system and sense organs; Z88.5 Allergy status to narcotic agent; Z88.8 Allergy status to other drugs, medicaments and biological substances
CPT/HCPCS: 81000; 87088; 87804

== ENCOUNTER 2022-02-28 10:40 | Emergency (ER) | payer MEDICARE, MEDICAID ==
[~2022-02-28] VITALS: Ht 157 cm; Wt 38.0 kg
[2022-02-28 10:40] VITALS: BP 121/85
--- NOTE | 2022-02-28 11:01 | ED General ---
General Chief Complaint: Cough/Cold/Flu Symptoms Stated Complaint: CONGESTION - SEIZURE Nursing Triage Note: Father states that he had surgery on his left ear 02/17/22 and was positive for Covid on Monday. he has a seizure disorder and had a seizure this AM. Family concerned that he may have some lung congestion. Pt is post-ictal on arrival and has CP. Source of Information: EMS, Family Exam Limitations: No Limitations History of Present Illness Date Seen by Provider: Feb 28, 2022 Time Seen by Provider: 10:58 Initial Comments Patient is severely disabled with a diagnosis of cerebral palsy comes in with seizure this morning. He has a known seizure disorder takes medication for it. He typically gets seizures when he is ill and he tested positive for COVID last week. No fevers. Does have a cough. Also just had left tympanic membrane reconstruction and a growth removed from the left ear canal last week by Dr. Hunt in [place] at [facility]. Timing/Duration: 1/2 Hour Severity: Moderate Associated Systoms: Denies Symptoms Allergies and Home Medications Allergies Coded Allergies: diphenhydramine (Unverified Allergy, Mild, 10/07/18) midazolam (Unverified Allergy, Mild, 10/07/18) glycopyrrolate (Unverified Allergy, Unknown, 10/07/18) hydrocodone (Unverified Allergy, Unknown, 10/07/18) codeine (Verified Adverse Reaction, Unknown, agitation, 10/07/18) Uncoded Allergies: [id number] (TUSSI-PRES) (Allergy, Mild, 11/16/08) Patient Home Medication List Home Medication List Reviewed: Yes Levetiracetam (Keppra Tab) 500 Mg Tab, 500 MG PO BID, (Reported) Entered as Reported by: OLINDA RAYA on 03/22/14 1122 Polyethylene Glycol 3350 (Miralax) 17 Gm Powd.pack, 17 GM PO BID Prescribed by: TERRY DYSON on 04/04/17 1439 Scopolamine (Transderm-Scop) 1.5 Mg Patch, 1 EA TD Q72H, (Reported) Entered as Reported by: OLINDA RAYA on 07/10/11 1249 Valproic Acid (Depakene Syrup (Repackaging)) 50 Mg/Ml Solution, 100 MG PO BID, (Reported) Entered as Reported by: OLINDA RAYA on 03/22/14 1122 [Clartin] 10 , 10 MG PO DAILY, (Reported) Entered as Reported by: JONATHAN PAIZ on 10/11/14 0918 Review of Systems Review of Systems Constitutional: see HPI EENTM: see HPI Respiratory: no symptoms reported Cardiovascular: no symptoms reported Genitourinary: no symptoms reported Musculoskeletal: no symptoms reported Skin: no symptoms reported Psychiatric/Neurological: No Symptoms Reported Hematologic/Lymphatic: No Symptoms Reported Immunological/Allergic: no symptoms reported Past Mckdfrw-Zwegwb-Qwuybi Hx Patient Social History Tobacco Use?: No Use of E-Cig and/or Vaping dev: No Substance use?: No Alcohol Use?: No Pt feels they are or have been: No Immunizations Up To Date Tetanus Booster (TDap): More than 5yrs PED Vaccines UTD: Yes Seasonal Allergies Seasonal Allergies: Yes Past Medical History Surgeries: Yes (CLEFT LIP/PALATE RECONSTRUCTION) Eye Surgery, Testicular Respiratory: Yes Asthma Cardiac: No Neurological: Yes (SEVERE MR--NON-VERBAL) Cerebral Palsy, Developmental Disorder, Seizure Disorder Genitourinary: Yes (INCONTINENCE--NOT BOWEL OR BLADDER TRAINED DUE TO SEVERE MR) Gastrointestinal: No Musculoskeletal: Yes (CEREBRAL PALSY--MINIMALLY AMBULATORY WITH ASSIST) Endocrine: No HEENT: Yes (CLEFT LIP/PALATE--STILL WITH OPENING IN HARD PALATE) Chronic Ear Infection Cancer: No Psychosocial: No Integumentary: No Blood Disorders: No Physical Exam Vital Signs Vital Signs - First Documented 02/28/22 10:40 Temp 37.1 Pulse 121 Resp 14 B/P (MAP) 121/85 (97) Pulse Ox 97 O2 Delivery Room Air Capillary Refill : Less Than 3 Seconds Height, Weight, BMI Height: 5'0" Weight: 85lbs. oz. 38.718231sg; 15.00 BMI Method:Stated General Appearance: No Apparent Distress, WD/WN, Thin, Other Eyes: Bilateral Eye Normal Inspection, Bilateral Eye PERRL, Bilateral Eye EOMI HEENT: Pharyngeal Erythema, Other (Incision behind the left ear is clean dry and intact without drainage or erythema. The tympanic membrane cannot be visualized due to dressing or medicated plug in the ear canal. Right tympanic membrane is normal.) Neck: Full Range of Motion, Normal Inspection Respiratory: No Accessory Muscle Use, No Respiratory Distress Cardiovascular: Regular Rate, Rhythm, Normal Peripheral Pulses Gastrointestinal: Non Tender, Soft Extremity: Normal Capillary Refill, Normal Inspection Neurologic/Psychiatric: Alert, Other (Eyes are open but not talking. Father states is not uncommon for him not to talk but this is also a common postictal state for him as well.) Skin: Normal Color, Warm/Dry Progress/Results/Core Measures Suspected Sepsis SIRS Temperature: Pulse: 121 Respiratory Rate: 14 Laboratory Tests 02/28/22 11:35: White Blood Count 11.8H Blood Pressure 121 /85 Mean: 97 Laboratory Tests 02/28/22 11:35: Creatinine 0.68, Platelet Count 296, Total Bilirubin 0.3 Results/Orders Lab Results Laboratory Tests Test 02/28/22 11:35 Range/Units White Blood Count 11.8 H 4.3-11.0 10^3/uL Red Blood Count 4.17 L 4.30-5.52 10^6/uL Hemoglobin 13.3 13.3-17.7 g/dL Hematocrit 40 40-54 % Mean Corpuscular Volume 95 80-99 fL Mean Corpuscular Hemoglobin 32 25-34 pg Mean Corpuscular Hemoglobin Concent 33 32-36 g/dL Red Cell Distribution Width 12.6 10.0-14.5 % Platelet Count 296 130-400 10^3/uL Mean Platelet Volume 9.0 9.0-12.2 fL Immature Granulocyte % (Auto) 1 % Neutrophils (%) (Auto) 77 H 42-75 % Lymphocytes (%) (Auto) 7 L 12-44 % Monocytes (%) (Auto) 15 H 0-12 % Eosinophils (%) (Auto) 1 0-10 % Basophils (%) (Auto) 1 0-10 % Neutrophils # (Auto) 9.0 H 1.8-7.8 10^3/uL Lymphocytes # (Auto) 0.8 L 1.0-4.0 10^3/uL Monocytes # (Auto) 1.8 H 0.0-1.0 10^3/uL Eosinophils # (Auto) 0.1 0.0-0.3 10^3/uL Basophils # (Auto) 0.1 0.0-0.1 10^3/uL Immature Granulocyte # (Auto) 0.1 0.0-0.1 10^3/uL Neutrophils % (Manual) 80 % Lymphocytes % (Manual) 7 % Monocytes % (Manual) 12 % Eosinophils % (Manual) 0 % Basophils % (Manual) 0 % Band Neutrophils 1 % Blood Morphology Comment NORMAL Sodium Level 138 135-145 MMOL/L Potassium Level 3.9 3.6-5.0 MMOL/L Chloride Level 103 98-107 MMOL/L Carbon Dioxide Level 26 21-32 MMOL/L Anion Gap 9 5-14 MMOL/L Blood Urea Nitrogen 10 7-18 MG/DL Creatinine 0.68 0.60-1.30 MG/DL Estimat Glomerular Filtration Rate 129 BUN/Creatinine Ratio 15 Glucose Level 84 70-105 MG/DL Calcium Level 9.1 8.5-10.1 MG/DL Corrected Calcium 9.3 8.5-10.1 MG/DL Total Bilirubin 0.3 0.1-1.0 MG/DL Aspartate Amino Transf (AST/SGOT) 17 5-34 U/L Alanine Aminotransferase (ALT/SGPT) 24 0-55 U/L Alkaline Phosphatase 105 40-136 U/L C-Reactive Protein High Sensitivity 0.31 0.00-0.50 MG/DL Total Protein 6.6 6.4-8.2 GM/DL Albumin 3.7 3.2-4.5 GM/DL My Orders Orders - TERRY DYSON DIRECTOR DATA PROCESSING Cbc With Automated Diff (02/28/22 10:57) Comprehensive Metabolic Panel (02/28/22 10:57) Hs C Reactive Protein (02/28/22 10:57) Chest 1 View, Ap/Pa Only (02/28/22 10:57) Manual Differential (02/28/22 11:35) Vital Signs/I&O 02/28/22 10:40 Temp 37.1 Pulse 121 Resp 14 B/P (MAP) 121/85 (97) Pulse Ox 97 O2 Delivery Room Air Capillary Refill : Less Than 3 Seconds Blood Pressure Mean: 97 Departure Communication (Admissions) 1217-oxygen saturation remains upwards of 97% during ER stay. Vitals are stable. I did some deep nasotracheal suctioning and got a small to moderate amount of material aspirated out. Chest x-ray is clear labs are unremarkable. I will not start an oral monoclonal antibody as we do not know the onset of symptoms. He tested positive on 02/25/2022 but he had ear surgery at [place] on 02/17/2022 and from that point on had cough and secretions which they attributed to the surgery itself but in hindsight might have been related to CO VID. NAME: MARINO CAMPBELL MED REC#: [id number] PT STATUS: REG ER : 1990 PHYSICIAN: TERRY DYSON APRN ADMIT DATE: 02/28/22/ER Draft Date of Exam:02/28/22 CHEST 1 VIEW, AP/PA ONLY INDICATION: COVID-19 positive. TIME OF EXAM: 11:11 a.m. COMPARISON: Correlation is made with prior chest from 10/07/2018. FINDINGS: The heart size is normal. The pulmonary vascularity is unremarkable. The lungs are clear. No infiltrate, effusion or pneumothorax is detected. IMPRESSION: No acute cardiopulmonary process is detected. Dictated on workstation # [id number] Dict: 02/28/22 1121 Trans: 02/28/22 1128 [id number] Interpreted by: JANESSA FELTON MD Electronically signed by: Impression Primary Impression: Seizure disorder Additional Impression: COVID Disposition: 01 HOME, SELF-CARE Condition: Stable Departure-Patient Inst. Decision time for Depature: 11:00 Referrals: ANAY GIRON MD (PCP/Family) Primary Care Physician Patient Instructions: COVID-19 Overview Add. Discharge Instructions: 1. Increase Mucinex dosing to what ever is indicated on the box which could be every 4-6 hours or twice a day for the extended release version. Return to ER for any concerns. All discharge instructions reviewed with patient and/or family. Voiced understanding. TERRY DYSON APRN Feb 28, 2022 11:01
--- NOTE | 2022-02-28 11:28 | Diagnostic Imaging Report ---
INDICATION: COVID-19 positive. TIME OF EXAM: 11:11 a.m. COMPARISON: Correlation is made with prior chest from 10/07/2018. FINDINGS: The heart size is normal. The pulmonary vascularity is unremarkable. The lungs are clear. No infiltrate, effusion or pneumothorax is detected. IMPRESSION: No acute cardiopulmonary process is detected. Dictated by: Dictated on workstation # [id number]
[2022-02-28 11:43] LABS: BASOPHILS # (AUTO) 0.1 10^3/uL (0.0-0.1); BASOPHILS % (AUTO) 1 % (0-10); EOSINOPHILS # (AUTO) 0.1 10^3/uL (0.0-0.3); EOSINOPHILS % (AUTO) 1 % (0-10); HEMATOCRIT 40 % (40-54); HEMOGLOBIN 13.3 g/dL (13.3-17.7); LYMPHOCYTES # (AUTO) 0.8 10^3/uL (1.0-4.0); LYMPHOCYTES % (AUTO) 7 % (12-44); MEAN CORPUSCULAR HEMOGLOBIN 32 pg (25-34); MEAN CORPUSCULAR HGB CONC 33 g/dL (32-36); MEAN CORPUSCULAR VOLUME 95 fL (80-99); MONOCYTES # (AUTO) 1.8 10^3/uL (0.0-1.0); MONOCYTES % (AUTO) 15 % (0-12); NEUTROPHILS % (AUTO) 77 % (42-75); PLATELET COUNT 296 10^3/uL (130-400); WHITE BLOOD COUNT 11.8 10^3/uL (4.3-11.0)
[2022-02-28 11:54] LABS: ALBUMIN 3.7 GM/DL (3.2-4.5)
[2022-02-28 11:55] LABS: POTASSIUM 3.9 MMOL/L (3.6-5.0)
[2022-02-28 11:56] LABS: CALCIUM 9.1 MG/DL (8.5-10.1)
[2022-02-28 11:57] LABS: TOTAL PROTEIN 6.6 GM/DL (6.4-8.2)
[2022-02-28 11:59] LABS: BILIRUBIN,TOTAL 0.3 MG/DL (0.1-1.0)
[2022-02-28 12:01] LABS: CREATININE SERUM 0.68 MG/DL (0.60-1.30)
[2022-02-28 12:05] LABS: BAND NEUTROPHILS 1 %; BASOPHILS % (MANUAL) 0 %; EOSINOPHILS % (MANUAL) 0 %; LYMPHOCYTES % (MANUAL) 7 %; MONOCYTES % (MANUAL) 12 %; NEUTROPHILS % (MANUAL) 80 %
[2022-02-28 12:06] LABS: RBC MORPH NORMAL
== END 2022-02-28 12:26 | disposition home or self-care (01) ==
LOC: EDUNIT# 10:40 → ER 10:41
DX: G40.909 Epilepsy, unspecified, not intractable, without status epilepticus (principal); U07.1 COVID-19; Z73.0 Burn-out
CPT/HCPCS: 36415; 71045; 80053; 85007; 85027; 86141